=== PATIENT | female | born 1955 | race African-American/Black ===

== ENCOUNTER 2017-10-31 07:53 | Inpatient (IN) | payer OTHER ==
[2017-10-31] VITALS (14 sets, daily range): BP systolic 112–202; BP diastolic 52–108
[~2017-10-31] VITALS: Ht 170.2 cm; Wt 126.1 kg
[~2017-10-31 07:53] MED LIST: ACETAMINOPHEN-1 EAC1 ORAL; BACTRIM DS TAB1 EAC1 ORAL; CLINDAMYCIN HC150 MG ORAL; KEFLEX500 MG ORAL; NEXIUM20 MG ORAL; NORCO 5-325 TA1 EACH ORAL; PREDNISONE20 MG ORAL; UNOBMED; YAZ 28 TABLET1 EACH ORAL; [UNRECOGNIZED DRUG - REMARK]; [UNRECOGNIZED DRUG - REMARK]
[2017-10-31] MEDS ORDERED: METOPROLOL TART50 M1 ORAL (08:30)
[2017-10-31] MEDS ORDERED: HYDROCHLOROTHIA25 MG ORAL (08:30)
[2017-10-31] MEDS ORDERED: [UNRECOGNIZED DRUG - REMARK] (08:30)
[2017-10-31] MEDS ORDERED: HALDOL5 MG/1 ML IJ (08:30)
[2017-10-31 09:15] LABS: BASOPHILS % (AUTO) 0.6 % (0.0-2.0); LYMPHOCYTES % (AUTO) 20.1 % (20.0-45.0); MEAN CORPUSCULAR HEMOGLOBIN 31.8 PG (27.0-31.0); MEAN CORPUSCULAR HGB CONC 33.3 G/DL (32.0-36.0); MEAN CORPUSCULAR VOLUME 95 FL (80-99); MEAN PLATELET VOLUME 5.6 FL (6.5-10.1); MONOCYTES % (AUTO) 9.4 % (1.0-10.0); NEUTROPHILS % (AUTO) 69.9 % (45.0-75.0); PLATELET COUNT 248 K/UL (150-450); RED BLOOD COUNT 4.47 M/UL (4.20-5.40); RED CELL DISTRIBUTION WIDTH 11.5 % (11.6-14.8); WHITE BLOOD COUNT 4.3 K/UL (4.8-10.8)
--- NOTE | 2017-10-31 09:15 | Emergency Room Report ---
History of Present Illness General Chief Complaint: Abdominal Pain Source: Patient Present Illness HPI 62-year-old female, history of gastric ulcer, obesity p/w abdominal pain 4 days. Patient states pain started gradually, localized to mid abdomen, non radiating, sharp in nature, intermittent. No relieving or exacerbating factors Pt reports n/v, >10 episodes of nbnb vomiting, 2 episodes of watery non bloody diarrhea Denies fever, chills. No hx of endoscopies/colonoscopies. Patient states that she has felt this pain in the past, and it was after she was taking a lot of Motrin for her knee pain. States that this feels similar to prior episodes Allergies: Uncoded Allergies: PENICILLIN (Allergy, Unknown, 05/05/16) Patient History Past Medical History: see triage record Past Surgical History: none Pertinent Family History: none Now: No Reviewed Nursing Documentation: PMH: Agreed, PSxH: Agreed Nursing Documentation-PMH Hx Cardiac Problems: Yes - High cholesteral, "enlarged heart" Hx Hypertension: Yes Hx Pacemaker: No Hx Asthma: Yes Hx COPD: No Hx Cancer: No Hx Gastrointestinal Problems: Yes - Gastritis; ulcers Hx Dialysis: No Hx Cerebrovascular Accident: No Hx Seizures: No Review of Systems All Other Systems: negative except mentioned in HPI Physical Exam Vital Signs Date Time Temp Pulse Resp B/P (MAP) Pulse Ox O2 Delivery O2 Flow Rate FiO2 10/31/17 07:56 99.1 113 18 177/108 95 Room Air Sp02 EP Interpretation: reviewed, normal General Appearance: well appearing, alert, GCS 15, non-toxic, mild distress Head: normocephalic, atraumatic Eyes: bilateral eye normal inspection, bilateral eye PERRL, bilateral eye EOMI ENT: normal ENT inspection, normal pharynx, normal voice, moist mucus membranes Neck: normal inspection, full range of motion, supple Respiratory: normal inspection, lungs clear, normal breath sounds, no respiratory distress, no retraction, no wheezing, speaking full sentences, chest symmetrical Cardiovascular #1: normal inspection, regular rate, rhythm, no edema, normal capillary refill Cardiovascular #2: 2+ radial (R), 2+ radial (L) Gastrointestinal: no guarding, no rebound, other - mid Abdomen tender palpation , indurated bulge/umbilical hernia palpated mid abdomen, non reducble and tender Musculoskeletal: normal inspection, back normal, normal range of motion, non- tender Neurologic: normal inspection, alert, oriented x3, responsive, motor strength/ tone normal, sensory intact, normal gait, speech normal Psychiatric: normal inspection, judgement/insight normal, memory normal Skin: normal inspection, normal color, no rash, warm/dry, well hydrated, normal turgor Medical Decision Making Diagnostic Impression: Primary Impression: Small bowel obstruction ER Course 62-year-old female with abdominal pain Differential Diagnosis: Gastritis, gastroenteritis, cholecystitis, appendicitis, diverticulitis, SBO, mesenteric ischemia, cardiac, UTI/pyelo Plan: Basic labs, ua, ekg Pepcid, maalox, pain control, IVF CT abdopelvis ER course: +SBO from incarcerated hernia Dr Ricci came to see patient Will go to OR Disposition: Patient is to be admitted to med surg D/W Dr Valencia who has accepted patient for admission Please note that this Emergency Department Report was dictated using [employer] building technology software, occasionally this can lead to erroneous entry secondary to interpretation by the dictation equipment EKG Diagnostic Results EP Interpretation: Yes Rate: normal Rhythm: NSR ST Segments: No acute changes ASA given to patient: No Rhythm Strip EP Interpretation: Yes Rate: 100 Rhythm: NSR, no PVCs, no ectopy Laboratory Tests Test 10/31/17 08:42 White Blood Count 4.3 K/UL (4.8-10.8) L Red Blood Count 4.47 M/UL (4.20-5.40) Hemoglobin 14.2 G/DL (12.0-16.0) Hematocrit 42.6 % (37.0-47.0) Mean Corpuscular Volume 95 FL (80-99) Mean Corpuscular Hemoglobin 31.8 PG (27.0-31.0) H Mean Corpuscular Hemoglobin Concent 33.3 G/DL (32.0-36.0) Red Cell Distribution Width 11.5 % (11.6-14.8) L Platelet Count 248 K/UL (150-450) Mean Platelet Volume 5.6 FL (6.5-10.1) L Neutrophils (%) (Auto) 69.9 % (45.0-75.0) Lymphocytes (%) (Auto) 20.1 % (20.0-45.0) Monocytes (%) (Auto) 9.4 % (1.0-10.0) Eosinophils (%) (Auto) 0.0 % (0.0-3.0) Basophils (%) (Auto) 0.6 % (0.0-2.0) Sodium Level 135 MMOL/L (136-145) L Potassium Level 3.5 MMOL/L (3.5-5.1) Chloride Level 93 MMOL/L (98-107) L Carbon Dioxide Level 33 MMOL/L (21-32) H Anion Gap 9 mmol/L (5-15) Blood Urea Nitrogen 9 mg/dL (7-18) Creatinine 1.0 MG/DL (0.55-1.30) Estimate Glomerular Filtration Rate > 60 mL/min (>60) Glucose Level 129 MG/DL (74-106) H Calcium Level 9.4 MG/DL (8.5-10.1) Total Bilirubin 0.4 MG/DL (0.2-1.0) Aspartate Amino Transferase (AST) 25 U/L (15-37) Alanine Aminotransferase (ALT) 16 U/L (12-78) Alkaline Phosphatase 70 U/L (46-116) Troponin I 0.000 ng/mL (0.000-0.056) Total Protein 8.4 G/DL (6.4-8.2) H Albumin 4.0 G/DL (3.4-5.0) Globulin 4.4 g/dL Albumin/Globulin Ratio 0.9 (1.0-2.7) L Lipase 76 U/L (73-393) CT/MRI/US Diagnostic Results CT/MRI/US Diagnostic Results : Imaging Test Ordered: CT abdo pelvis Impression Findings: Multiple, moderately distended loops of small bowel demonstrated to the level of a umbilical region hernia measuring about 5 cm in diameter. The hernia contains a loop of distended bowel and is almost certainly accounting for the bowel obstruction. Difficult to identify the efferent loop coming out of the hernia. There is a small amount of ascites. There is no free air. The uterus is markedly distended and enlarged as well as heterogeneous due to fibroids. Aortoiliac calcifications are noted. Parapelvic cysts are again demonstrated in the left kidney. The lung bases appear clear. Gallbladder, liver and spleen and pancreas are unremarkable. Mild endplate spurs noted in the visualized lower thoracic spine. There is narrowing of L4-5 disc with a minimal anterolisthesis. Hypertrophied facets noted in the lower part of lumbar spine. IMPRESSION: Small bowel obstruction secondary to a 5 cm umbilical hernia. Please correlate clinically. Trace ascites Atherosclerotic disease. Markedly enlarged heterogeneous uterus due to fibroids. Multiple parapelvic left renal cysts. Degenerative changes of the thoracolumbar spine as described above Last Vital Signs Date Time Temp Pulse Resp B/P (MAP) Pulse Ox O2 Delivery O2 Flow Rate FiO2 10/31/17 07:56 99.1 113 18 177/108 95 Room Air Disposition: ADMITTED INPATIENT Condition: Serious Referrals: [facility],REFERRING (PCP) Memo Glasgow M.D. Oct 31, 2017 09:15
[2017-10-31 09:26] LABS: ANION GAP 9 mmol/L (5-15); CALCIUM 9.4 MG/DL (8.5-10.1); CARBON DIOXIDE 33 MMOL/L (21-32); CHLORIDE 93 MMOL/L (98-107); GLOMERULAR FILTRATION RATE > 60 mL/min (>60); POTASSIUM 3.5 MMOL/L (3.5-5.1); SODIUM 135 MMOL/L (136-145)
[2017-10-31 09:31] LABS: ALANINE AMINOTRANSFERASE 16 U/L (12-78); ALBUMIN/GLOBULIN RATIO 0.9 (1.0-2.7); ASPARTATE AMINO TRANSFERASE 25 U/L (15-37); LIPASE 76 U/L (73-393); TOTAL PROTEIN 8.4 G/DL (6.4-8.2)
[2017-10-31] MEDS ORDERED: Morphine Sulfate 4mg/ml Inj IVP ONE (10:15)
--- NOTE | 2017-10-31 10:27 | Diagnostic Imaging Report ---
Indication: Abdominal pain Technique: Continuous helical transaxial imaging of the abdomen and pelvis was obtained from the lung bases to the pubic symphysis during intravenous contrast administration. Coronal 2-D reformats were also obtained. Study obtained in a Siemens sensation [address] Automatic Exposure Control was utilized. Total Dose length Product (DLP): 958.[address] Dose Index Volume (CTDIvol): 18.6, 0.15 mGy Comparison: 05/11/2015 Findings: Multiple, moderately distended loops of small bowel demonstrated to the level of a umbilical region hernia measuring about 5 cm in diameter. The hernia contains a loop of distended bowel and is almost certainly accounting for the bowel obstruction. Difficult to identify the efferent loop coming out of the hernia. There is a small amount of ascites. There is no free air. The uterus is markedly distended and enlarged as well as heterogeneous due to fibroids. Aortoiliac calcifications are noted. Parapelvic cysts are again demonstrated in the left kidney. The lung bases appear clear. Gallbladder, liver and spleen and pancreas are unremarkable. Mild endplate spurs noted in the visualized lower thoracic spine. There is narrowing of L4-5 disc with a minimal anterolisthesis. Hypertrophied facets noted in the lower part of lumbar spine. IMPRESSION: Small bowel obstruction secondary to a 5 cm umbilical hernia. Please correlate clinically. Trace ascites Atherosclerotic disease. Markedly enlarged heterogeneous uterus due to fibroids. Multiple parapelvic left renal cysts. Degenerative changes of the thoracolumbar spine as described above The CT scanner at [facility] [place] is accredited by the [employer] and the scans are performed using dose optimization techniques as appropriate to a performed exam including Automatic Exposure control.
[2017-10-31] MEDS ORDERED: Vancomycin 1gm inj IVPB ONE (14:43)
[2017-10-31 14:48] LABS: APPEARANCE,URINE CLEAR; KETONES,URINE NEGATIVE (NEGATIVE); LEUKOCYTE ESTERASE ,URINE 1+ (NEGATIVE); NITRITE,URINE NEGATIVE (NEGATIVE); PH,URINE 7 (4.5-8.0); PROTEIN,URINE 2+ (NEGATIVE); UROBILINOGEN,URINE NORMAL MG/DL (0.0-1.0)
[2017-10-31] MEDS ORDERED: Lidocaine 1% 10mg/ml/EPI 0.01mg/ml 50ml INJ ONE (14:51)
[2017-10-31] MEDS ORDERED: Propofol 200mg/20ml IV ONE (14:51)
[2017-10-31] MEDS ORDERED: Ropivacaine 5mg/ml Vial 30ml INJ ONE (14:51)
[2017-10-31 14:57] LABS: BACTERIA,URINE FEW /HPF; SQUAMOUS EPITHELIAL CELL,UR FEW /LPF (NONE/OCC)
[2017-10-31] MEDS ORDERED: NeoSporin Gu Irrig 1ml Amp IRRIG ONE (15:18)
[2017-10-31] MEDS ORDERED: Bacitracin 50000 Units Vial ONE (15:18)
--- NOTE | 2017-10-31 15:29 | Consultation ---
History of Present Illness General Date patient seen: Oct 31, 2017 Chief Complaint: Abdominal Pain Reason for Consultation: incarcerated umbilical hernia Present Illness HPI 62 year old female with multiple medical comorbidities and known umbilical hernia presents with acutely worsening abdominal pain with tender umbilical mass. States that she first noted some discomfort a few days ago but last night acutely noted more severe pain followed by over 10 episodes of non bloody emesis. states that as the pain worsened she came to ED for evaluation. has known of umbilical hernia prior and has noted a small discomfort in the area prior but has never had similar episode. pain described as 10/10 umbilical cramping pain. has not had BM or flatus since onset. in ED noted to have umbilical mass that is not reducible, tenderness, and CT scan with SBO secondary to incarcerated bowel in 5cm umbilical hernia. surgery called to evaluate. Allergies: Uncoded Allergies: PENICILLIN (Allergy, Unknown, 05/05/16) Medication History Scheduled Cephalexin* (Keflex*), 500 MG ORAL Q6H Clindamycin Hcl* (Clindamycin Hcl*), 300 MG ORAL TID, (Reported) Esomeprazole Magnesium (Nexium), 20 MG ORAL DAILY Hydrochlorothiazide* (Hydrochlorothiazide*), 25 MG ORAL DAILY, (Reported) Metoprolol Tartrate* (Metoprolol Tartrate*), 50 MG ORAL DAILY, (Reported) Prednisone* (Prednisone*), 20 MG ORAL DAILY Trimethoprim/Sulfamethoxazole 160/800* (Bactrim Ds Tablet*), 1 TAB ORAL Q12H Scheduled PRN Acetaminophen With Codeine (T#3) (Tylenol #3 Tab*), 1 TAB ORAL Q4H PRN for For Pain, (Reported) Ethinyl Estradiol/Drospirenone (Deonan 28 Tablet), 1 TAB ORAL DAILY PRN for Abdominal cramps Hydrocodone Bit/Acetaminophen 5-325* ([place] 5-325*), 1 TAB ORAL Q6H PRN for For Pain Miscellaneous Medications Haloperidol Lactate (Haldol), 5 MG IJ, (Reported) Unable to Obtain Medications (Unable To Obtain Meds), (Reported) ["BP pill"], (Reported) ["Nerve pill"], (Reported) [Cholesterol pill], Unknown Dose, (Reported) Patient History History Provided By: Patient Healthcare decision maker Resuscitation status Advanced Directive on File Past Medical/Surgical History Past Medical/Surgical History: (1) HTN (hypertension) (2) Dyslipidemia (3) Pre-diabetes (4) Umbilical hernia, incarcerated (5) Gastritis (6) Fibroid, uterine (7) Abdominal pain (8) Abscess (9) Cellulitis (10) Dental infection (11) Small bowel obstruction Review of Systems Constitutional: Denies: no symptoms, see HPI, chills, sweats, fever, malaise, weakness, other Eye: Denies: no symptoms, see HPI, eye pain, blurred vision, tearing, double vision, nose pain, nose congestion, acuity changes, discharge, other ENT: Denies: no symptoms, see HPI, ear pain, ear discharge, nose pain, nose congestion, throat pain, throat swelling, mouth pain, hearing loss, nasal discharge, other Respiratory: Denies: no symptoms, see HPI, cough, orthopnea, shortness of breath, stridor, wheezing, BOWLING, sputum, other Cardiovascular: Denies: no symptoms, see HPI, chest pain, edema, palpitations, syncope, PND, other Gastrointestinal: Reports: abdominal pain, constipation, nausea, vomiting Genitourinary: Denies: no symptoms, see HPI, discharge, dysuria, frequency, hematuria, pain, retention, incontinence, urgency, vag bleed/dc, other Musculoskeletal: Denies: no symptoms, see HPI, back pain, gout, joint pain, joint swelling, muscle pain, muscle stiffness, other Skin: Denies: no symptoms, see HPI, rash, change in color, change in hair/nails , dryness, lesions, other Psychiatric: Denies: no symptoms, see HPI, prior hx, anxiety, depressed feelings, emotional problems, SI, HI, hallucinations, other Neurological: Denies: no symptoms, see HPI, headache, numbness, paresthesia, seizure, tingling, tremors, focal weakness, syncope, dizziness, other Endocrine: Denies: no symptoms, see HPI, excessive sweating, flushing, intolerance to temperature, increased thirst, increased urine, unexplained weight loss, other Hematologic/Lymphatic: Denies: no symptoms, see HPI, anemia, blood clots, easy bleeding, easy bruising, swollen glands, diathesis, other All Other Systems: negative except mentioned in HPI Physical Exam General Appearance: alert, mild distress Lines, tubes and drains: peripheral HEENT: normocephalic, PERRL Neck: normal inspection Respiratory/Chest: normal breath sounds, no respiratory distress, no accessory muscle use Cardiovascular/Chest: normal peripheral pulses, normal rate, regular rhythm Abdomen: absent bowel sounds, distended, guarding, rebound, tender, hernia, mass, other - distended, firm large 8cm x 8cm mass noted at umbilicus that is tender with rebound and guarding. unable to reduce hernia. Extremities: normal inspection Skin Exam: normal pigmentation, warm/dry Neurologic: alert, oriented x 3, responsive Last 24 Hour Vital Signs Date Time Temp Pulse Resp B/P (MAP) Pulse Ox O2 Delivery O2 Flow Rate FiO2 10/31/17 12:45 84 17 192/88 100 Room Air 10/31/17 12:00 78 12 195/92 97 Room Air 10/31/17 11:00 98.9 88 15 190/94 96 Room Air 10/31/17 10:40 98.9 92 15 202/93 98 Room Air 10/31/17 07:56 99.1 113 18 177/108 95 Room Air 10/31/17 07:56 99.1 113 18 177/108 95 Room Air Laboratory Tests Test 10/31/17 08:42 10/31/17 14:40 White Blood Count 4.3 K/UL (4.8-10.8) L Red Blood Count 4.47 M/UL (4.20-5.40) Hemoglobin 14.2 G/DL (12.0-16.0) Hematocrit 42.6 % (37.0-47.0) Mean Corpuscular Volume 95 FL (80-99) Mean Corpuscular Hemoglobin 31.8 PG (27.0-31.0) H Mean Corpuscular Hemoglobin Concent 33.3 G/DL (32.0-36.0) Red Cell Distribution Width 11.5 % (11.6-14.8) L Platelet Count 248 K/UL (150-450) Mean Platelet Volume 5.6 FL (6.5-10.1) L Neutrophils (%) (Auto) 69.9 % (45.0-75.0) Lymphocytes (%) (Auto) 20.1 % (20.0-45.0) Monocytes (%) (Auto) 9.4 % (1.0-10.0) Eosinophils (%) (Auto) 0.0 % (0.0-3.0) Basophils (%) (Auto) 0.6 % (0.0-2.0) Sodium Level 135 MMOL/L (136-145) L Potassium Level 3.5 MMOL/L (3.5-5.1) Chloride Level 93 MMOL/L (98-107) L Carbon Dioxide Level 33 MMOL/L (21-32) H Anion Gap 9 mmol/L (5-15) Blood Urea Nitrogen 9 mg/dL (7-18) Creatinine 1.0 MG/DL (0.55-1.30) Estimat Glomerular Filtration Rate > 60 mL/min (>60) Glucose Level 129 MG/DL (74-106) H Calcium Level 9.4 MG/DL (8.5-10.1) Total Bilirubin 0.4 MG/DL (0.2-1.0) Aspartate Amino Transf (AST/SGOT) 25 U/L (15-37) Alanine Aminotransferase (ALT/SGPT) 16 U/L (12-78) Alkaline Phosphatase 70 U/L (46-116) Troponin I 0.000 ng/mL (0.000-0.056) Total Protein 8.4 G/DL (6.4-8.2) H Albumin 4.0 G/DL (3.4-5.0) Globulin 4.4 g/dL Albumin/Globulin Ratio 0.9 (1.0-2.7) L Lipase 76 U/L (73-393) Urine Color Pale yellow Urine Appearance Clear Urine pH 7 (4.5-8.0) Urine Specific [place] 1.005 (1.005-1.035) Urine Protein 2+ (NEGATIVE) H Urine Glucose (UA) Negative (NEGATIVE) Urine Ketones Negative (NEGATIVE) Urine Occult Blood 1+ (NEGATIVE) H Urine Nitrite Negative (NEGATIVE) Urine Bilirubin Negative (NEGATIVE) Urine Urobilinogen Normal MG/DL (0.0-1.0) Urine Leukocyte Esterase 1+ (NEGATIVE) H Urine RBC 2-4 /HPF (0 - 2) H Urine WBC 2-4 /HPF (0 - 2) Urine Squamous Epithelial Cells Few /LPF (NONE/OCC) Urine Bacteria Few /HPF (NONE) Height (Feet): 5 Height (Inches): 7.00 Weight (Pounds): 278 Assessment/Plan Problem List: (1) Umbilical hernia, incarcerated Assessment & Plan: 62F with large incarcerated umbilical hernia with SBO. low grade fever, labs reviewed, on exam large tender umbilical mass that is not reducible with tenderness/guarding/rebound, and distention. given exam and history there is serious concern for possible strangulation and bowel ischemia or necrosis either present or in very near future. recommend urgent/emergency exploration. if bowel viable will reduce and repair hernia. if bowel not viable will need resection. risks, benefits, and alteratives discussed in detail. patient expressed understanding and consented to procedure. she is not safe to be discharged or transferred. given symptoms and exam high possibility of morbidity/mortality if not treated sari. -npo -iv fluids -iv abx -consent -to OR for ex lap, reduction of incarcerated umbilical hernia, possible bowel resection ICD Codes: K42.0 - Umbilical hernia with obstruction, without gangrene SNOMED: [id number] Status: progressing Abhinav Ricci Oct 31, 2017 15:29
--- NOTE | 2017-10-31 15:31 | Pre-Procedure Note/Attestation ---
Pre-Procedure Note/Attestation Complete Prior to Procedure Procedure Narrative: ex lap, reduction of umbilical hernia, possible bowel resection Indications for Procedure Pre-Operative Diagnosis: incarcerated umbilical hernia with possible bowel strangulation/ischemia/ necrosis. Attestation I attest that I discussed the nature of the procedure; its benefits; risks and complications; and alternatives (and the risks and benefits of such alternatives ), prior to the procedure, with the patient (or the patient's legal patient financial representative). I attest that, if there was a reasonable possibility of needing a blood transfusion, the patient (or the patient's legal patient financial representative) was given the [facility] standardized written summary, pursuant to the Balwinder Harrison Blood Safety Act ([place] Health and Safety Code # 1645, as amended). I attest that I re-evaluated the patient just prior to the surgery and that there has been no change in the patient's H&P, except as documented below: Abhinav Ricci Oct 31, 2017 15:31
[2017-10-31] MEDS ORDERED: Sterile Water Irrig 1000ml IRRIG ONE (16:00)
[2017-10-31] MEDS ORDERED: Neostigmine 1mg/ml 10ml Inj ONE (16:00)
[2017-10-31] MEDS ORDERED: Zemuron 50mg/5ml Inj IV ONE (16:00)
[2017-10-31] MEDS ORDERED: Glycopyrrolate 0.2mg/ml 1ml Vial ONE (16:00)
[2017-10-31] MEDS ORDERED: Midazolam 2mg/2ml Inj ONE (16:00)
[2017-10-31] MEDS ORDERED: Ketorolac 30mg Inj ONE (16:00)
[2017-10-31] MEDS ORDERED: fentaNYL 100 mcg/2 mL IV ONE (16:00)
[2017-10-31] MEDS ORDERED: Morphine Sulfate 10mg/ml Inj ONE (16:00)
[2017-10-31] MEDS ORDERED: NS Irrig 1000ml ONE (16:00)
[2017-10-31] MEDS ORDERED: LR 1000ml ONE (16:00)
[2017-10-31] MEDS ORDERED: Succinylcholine 20mg/ml 10ml vial ONE (16:00)
[2017-10-31] MEDS ORDERED: LR 1000ml 1,000 ML IVLG SCH (16:52)
--- NOTE | 2017-10-31 16:52 | Anethesia Preoperative Eval ---
Anesthesia Pre-op PMH/ROS General Date of Evaluation: Oct 31, 2017 Time of Evaluation: 15:46 Anesthesiologist: Gonzalo ASA Score: ASA 3 Mallampati Score Class I : Soft palate, uvula, fauces, pillars visible Class II: Soft palate, uvula, fauces visible Class III: Soft palate, base of uvula visible Class IV: Only hard plate visible Mallampati Classification: Class III Surgeon: Clarita Diagnosis: Incarcerated hernia small bowel obstruction Surgical Procedure: Hernia repair Anesthesia History: none Family History: no anesthesia problems Allergies: Uncoded Allergies: PENICILLIN (Allergy, Unknown, 05/05/16) Medications: see eMAR Past Medical History Cardiovascular: Reports: HTN, Denies: CAD, CT, valve dz, arrhythmia, other Pulmonary: Reports: ALLISON, Denies: asthma, COPD, other Gastrointestinal/Genitourinary: Reports: GERD, Denies: CRI, ESRD, other Neurologic/Psychiatric: Reports: depression/anxiety, Denies: dementia, CVA, TIA, other Endocrine: Reports: steroids, Denies: DM, hypothyroidism, other HEENT: Denies: cataract (L), cataract (R), glaucoma, TAKOTNA (L), TAKOTNA (R), other Hematology/Immune: Denies: anemia, DVT, bleeding disorder, other Musculoskeletal/Integumentary: Reports: DJD Other: obesity - morbid obesity PMH Narrative: acute abdominal pain recurrent vomiting PSxH Narrative: None Anesthesia Pre-op Phys. Exam Physician Exam Last Vital Signs Date Time Temp Pulse Resp B/P (MAP) Pulse Ox O2 Delivery O2 Flow Rate FiO2 10/31/17 15:20 98.9 87 17 190/87 100 Room Air Constitutional: NAD Neurologic: CN 2-12 intact Cardiovascular: RRR Respiratory: other - diminished breath sunds Gastrointestinal: other - obesity Airway Exam Mallampati Score: Class III MO: limited Neck: short ROM: limited Teeth: missing Dentures: no upper, no lower Anesthesia Pre-op A/P Labs Hematology Test 10/31/17 08:42 White Blood Count 4.3 K/UL (4.8-10.8) L Red Blood Count 4.47 M/UL (4.20-5.40) Hemoglobin 14.2 G/DL (12.0-16.0) Hematocrit 42.6 % (37.0-47.0) Mean Corpuscular Volume 95 FL (80-99) Mean Corpuscular Hemoglobin 31.8 PG (27.0-31.0) H Mean Corpuscular Hemoglobin Concent 33.3 G/DL (32.0-36.0) Red Cell Distribution Width 11.5 % (11.6-14.8) L Platelet Count 248 K/UL (150-450) Mean Platelet Volume 5.6 FL (6.5-10.1) L Neutrophils (%) (Auto) 69.9 % (45.0-75.0) Lymphocytes (%) (Auto) 20.1 % (20.0-45.0) Monocytes (%) (Auto) 9.4 % (1.0-10.0) Eosinophils (%) (Auto) 0.0 % (0.0-3.0) Basophils (%) (Auto) 0.6 % (0.0-2.0) Chemistry Test 10/31/17 08:42 Sodium Level 135 MMOL/L (136-145) L Potassium Level 3.5 MMOL/L (3.5-5.1) Chloride Level 93 MMOL/L (98-107) L Carbon Dioxide Level 33 MMOL/L (21-32) H Anion Gap 9 mmol/L (5-15) Blood Urea Nitrogen 9 mg/dL (7-18) Creatinine 1.0 MG/DL (0.55-1.30) Estimat Glomerular Filtration Rate > 60 mL/min (>60) Glucose Level 129 MG/DL (74-106) H Calcium Level 9.4 MG/DL (8.5-10.1) Total Bilirubin 0.4 MG/DL (0.2-1.0) Aspartate Amino Transf (AST/SGOT) 25 U/L (15-37) Alanine Aminotransferase (ALT/SGPT) 16 U/L (12-78) Alkaline Phosphatase 70 U/L (46-116) Troponin I 0.000 ng/mL (0.000-0.056) Total Protein 8.4 G/DL (6.4-8.2) H Albumin 4.0 G/DL (3.4-5.0) Globulin 4.4 g/dL Albumin/Globulin Ratio 0.9 (1.0-2.7) L Lipase 76 U/L (73-393) Studies Pre-op Studies: EKG - SR Risk Assessment & Plan Assessment: ASA 3 E Plan: GA with ETT Status Change Before Surgery: No Pre-Antibiotics Drug: CVancomycin 1 gr. Given Within 1 Hr of Incision: Yes Time Given: 16:42 DIGNA REYES M.D. Oct 31, 2017 16:52
[2017-10-31] MEDS ORDERED: Ketorolac 30mg Inj IV PRN ×2 (17:00→18:15)
[2017-10-31] MEDS ORDERED: Hydromorphone 0.5mg/0.5ml inj IVP PRN (17:00)
[2017-10-31] MEDS ORDERED: DiphenhydrAMINE 50mg/ml Inj IVP PRN ×2 (17:00→21:00)
[2017-10-31] MEDS ORDERED: Meperidine 50mg/ml Inj(FOR RIGORS ONLY) IV PRN (17:00)
[2017-10-31] MEDS ORDERED: Midazolam 2mg/2ml Inj IVP PRN (17:00)
--- NOTE | 2017-10-31 17:56 | Immediate Post-Op Evaluation ---
Immediate Post-Op Evalulation Immediate Post-Op Evalulation Procedure: Incarcerated umbilical hernia repair Date of Evaluation: Oct 31, 2017 Time of Evaluation: 17:54 IV Fluids: 1000 Blood Products: none Estimated Blood Loss: min Urinary Output: none Blood Pressure Systolic: 161 Blood Pressure Diastolic: 72 Pulse Rate: 96 Respiratory Rate: 20 O2 Sat by Pulse Oximetry: 99 Temperature (Fahrenheit): 98.1 Pain Score (1-10): 2 Nausea: No Vomiting: No Complications none Patient Status: awake, patent, extubated, none Hydration Status: adequate DIGNA REYES M.D. Oct 31, 2017 17:56
--- NOTE | 2017-10-31 18:01 | Brief Operative Note ---
Immediate Post Operative Note Operative Note Pre-op Diagnosis: incarcerated umbilical hernia with possible bowel strangulation/ischemia/ necrosis. Procedure: exploratory laparotomy, reduction of incarcerated umbilical hernia, lysis of adhesions, umbilical hernia repair with mesh Post-op Diagnosis: same as pre-op Findings: consistent w/pre-op dx studies Surgeon: tiana Anesthesiologist: chiqui Anesthesia: general, local Specimen: yes - hernia sac; small bowel implants Complications: none Condition: stable Fluids: see records Estimated Blood Loss: minimal Drains: none Implant(s) used?: Yes - mesh Abhinav Ricci Oct 31, 2017 18:01
[2017-10-31] MEDS ORDERED: Morphine Sulfate 2mg/ml Inj IVP PRN ×2 (18:15→20:00)
[2017-10-31] MEDS ORDERED: Milk of Magnesia 30ml Ud ORAL PRN (21:00)
[2017-10-31] MEDS ORDERED: Norco 5mg/325mg tab ORAL PRN (21:00)
--- NOTE | 2017-10-31 21:30 | Operative Note - Dictated ---
DATE OF OPERATION: 10/31/2017 PREOPERATIVE DIAGNOSIS: Incarcerated umbilical hernia with possible bowel strangulation, ischemia, or necrosis. POSTOPERATIVE DIAGNOSIS: Incarcerated umbilical hernia. OPERATION PERFORMED: 1. Exploratory laparotomy. 2. Reduction of incarcerated umbilical hernia. 3. Lysis of adhesions. 4. Umbilical hernia repair with mesh. ATTENDING SURGEON: Abhinav Ricci M.D. BUGGY RUNNER: None. ANESTHESIOLOGIST: Abdiel Sánchez M.D. 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 SPECIMENS: 1. Hernia sac. 2. Small bowel implants. COMPLICATIONS: None. CONDITION: Stable to PACU. FLUIDS: Please see anesthesia record. ESTIMATED BLOOD LOSS: Minimal. DRAINS: None. IMPLANTS: Bard Ventralex hernia patch, lot number [id number], reference #[id number]. Date of expiration 09/02/2020. INDICATIONS FOR PROCEDURE: This is a 62-year-old female, who presented to the emergency department at [facility] complaining of worsening acute onset umbilical abdominal pain with associated nausea and emesis. The patient stated that late yesterday evening, she began to notice a very firm tender mass in her umbilicus that she had not seen before. Following this, she began to develop worsening pain associated with nausea and over 10 episodes of nonbloody emesis. The pain did not resolve. The patient came to emergency department for evaluation. In the emergency department, the patient had a CT scan, which identified an incarcerated umbilical hernia, which was not reducible at bedside. Given these findings and the patient's symptoms, there is significant concern for possible ischemia, necrosis, or strangulation. Exploration was warranted and to be performed immediately. Risks, benefits, and alternatives were discussed with the patient at bedside in detail. Consent was obtained. OPERATIVE NOTE: The patient was taken to the operating room and placed on operating table in supine position with bilateral arms out. All bony prominences were well padded with GelPads. General anesthesia was induced and the patient was intubated. Preoperative time-out was taken identifying the patient, procedure, operative staff, and surgical staff. SCDs were placed. IV antibiotics were given one hour prior to cut time. The abdomen was prepped and draped in the standard surgical fashion. A midline incision was made around the umbilicus using a fresh #10 scalpel. Incision was carried down through the subcutaneous tissue to the fascia using electrocautery and blunt dissection. The hernia sac was identified and circumferentially dissected out. The umbilicus was attached directly to the hernia sac. The umbilicus was freed from the hernia sac. At this time, a hernia sac approximately the size of a baseball or the larger was firm and under tension. A small incision was made into the hernia sac and fair amount of serous fluid was evacuated. The bowel contents of the hernia sac were mildly ischemic, but fortunately were not necrotic and after reduced became more pink and viable. At this time, the hernia sac was excised in whole and sent to pathology for review. The small bowel was evaluated at the area of incarceration. Around the area of incarceration, there was a fair amount of adhesions, which were lysed with electrocautery and Metzenbaum scissors as necessary. Once lysis of adhesions was completed, there were some small bowel implants that were identified. A sample of these small bowel implants was sent to pathology for review. Following this, the segment of the small bowel was run proximally and distally to the area of incarceration and the bowel was otherwise healthy and slowly became decompressed throughout the procedure. At this time, since the bowel was viable was reduced back into anatomical location. No other abnormalities were seen through this incision. Approximately 200 to 250 mL of serous drainage was evacuated from the abdomen. Once this was complete, decision was made to proceed with umbilical hernia repair. The hernia defect was approximately 4 to 5 cm in diameter, but fortunately under no significant tension. At this time, decision was made to use a Bard Ventralex hernia repair patch. The patch was fixed in an underlay fashion using #0 Prolene sutures circumferentially around the circular patch and the defect. Once this was complete and successful, the hernia defect was primarily closed using multiple interrupted #0 Prolene sutures. At this time, successful hernia repair was noted. The wound was irrigated with copious amounts of saline. Hemostasis was achieved. The umbilicus was reapproximated using a 3-0 Vicryl suture. Following this, the skin incision was closed using surgical skin juancho. The patient tolerated the procedure well and was extubated and taken to the postanesthetic care unit in stable condition. Abhinav Ricci M.D. DR: Ilsa JOB#: [id number] CC:
[2017-10-31] MEDS: ceFAZolin 2gm/50ml Premix 50 ML IV SCH (21:46)
[2017-10-31] MEDS: Morphine Sulfate 4mg/ml Inj IVP PRN (21:47)
[2017-10-31] MEDS: D5 1/2NS w/KCl 20mEq 1,000 ML IV SCH (22:40)
[2017-11-01] VITALS (7 sets, daily range): BP systolic 123–181; BP diastolic 62–85
[2017-11-01] MEDS: Morphine Sulfate 4mg/ml Inj IVP PRN (04:06)
[2017-11-01] MEDS: ceFAZolin 2gm/50ml Premix 50 ML IV SCH (05:14)
[2017-11-01 06:46] LABS: ANION GAP 5 mmol/L (5-15); CALCIUM 7.9 MG/DL (8.5-10.1); CARBON DIOXIDE 33 MMOL/L (21-32); CHLORIDE 100 MMOL/L (98-107); CREATININE 0.9 MG/DL (0.55-1.30); GLOMERULAR FILTRATION RATE > 60 mL/min (>60); POTASSIUM 3.7 MMOL/L (3.5-5.1); SODIUM 138 MMOL/L (136-145)
[2017-11-01 06:52] LABS: BASOPHILS % (AUTO) 0.6 % (0.0-2.0); EOSINOPHILS % (AUTO) 0.4 % (0.0-3.0); LYMPHOCYTES % (AUTO) 10.7 % (20.0-45.0); MEAN CORPUSCULAR HEMOGLOBIN 31.5 PG (27.0-31.0); MEAN CORPUSCULAR HGB CONC 32.5 G/DL (32.0-36.0); MEAN CORPUSCULAR VOLUME 97 FL (80-99); MEAN PLATELET VOLUME 5.6 FL (6.5-10.1); MONOCYTES % (AUTO) 11.8 % (1.0-10.0); NEUTROPHILS % (AUTO) 76.5 % (45.0-75.0); PLATELET COUNT 204 K/UL (150-450); RED BLOOD COUNT 3.68 M/UL (4.20-5.40); RED CELL DISTRIBUTION WIDTH 12.1 % (11.6-14.8); WHITE BLOOD COUNT 6.1 K/UL (4.8-10.8)
--- NOTE | 2017-11-01 08:45 | History and Physical Report ---
DATE OF ADMISSION: 10/31/2017 NOTE: POOR AUDIO Covering for Dr. Link. IDENTIFICATION: The patient is a pleasant 62-year-old female with past medical history significant for GERD, umbilical hernia, at this time presents for worsening umbilical pain, tenderness, and umbilical mass. She states that she has first noted this discomfort several days ago and has been more severe followed by 10 episodes of nonbloody vomiting, presented to the ER with small umbilical hernia noted in the area of the , however, now significantly worse. No bowel movements umbilical mass such as nonreducible SBO, secondary to incarcerated bowel umbilical hernia. Surgery called to evaluate. . The patient . PAST SURGICAL HISTORY: None noted. REVIEW OF SYSTEMS: Otherwise negative. The patient denies nausea, vomiting, or constipation. PHYSICAL EXAMINATION: VITAL SIGNS: Reviewed. GENERAL: No acute distress. PULMONARY: Decreased breath sounds. CARDIOVASCULAR: Regular rate. No S3 or S4. ABDOMEN: Soft, nontender, and nondistended. nonreducible distended 8 x 8 cm mass in the umbilicus with abdominal gradient . EXTREMITIES: No cyanosis, swelling, or edema. LABORATORY AND DIAGNOSTIC DATA: WBC , hemoglobin 14.2, and platelet count 228,000. umbilical hernia incarcerated with SBO, low-grade fever, reviewed. On exam, umbilical mass is nonreducible. No tenderness, guarding, rebound, and distention noted. BUN of 9 and creatinine of 1. Urine toxicology screen and urinalysis reviewed. ASSESSMENT AND RECOMMENDATIONS: 1. Incarcerated umbilical hernia, seen by surgical team. The patient is on antibiotics. The patient sent to the OR for exploratory laparotomy reduction, possible bowel resection. The patient tolerated the procedure well. Hernia has been repaired. Currently, the patient improved. Continue to closely monitor with fluids. 2. Leukopenia, related to medications versus process. Continue to closely follow. 3. Small bowel obstruction, likely secondary to incarcerated hernia. 4. Nausea and vomiting due to incarcerated hernia, currently improved. Continue Zofran on a p.r.n. basis. 5. . Juan Valencia M.D. DR: BRAD JOB#: [id number] CC:
[2017-11-01] MEDS: Docusate 100mg cap ORAL SCH ×2 (10:30→17:15)
[2017-11-01] MEDS ORDERED: Flu Vaccine Quadrivalent 0.5ml IM ONE (11:00)
[2017-11-01] MEDS: D5 1/2NS w/KCl 20mEq 1,000 ML IV SCH ×2 (12:10→19:00)
[2017-11-01] MEDS: Norco 10mg/325mg tab ORAL PRN ×2 (12:11→20:43)
--- NOTE | 2017-11-01 13:11 | Cardiology Report ---
APPROVED REPORT EKG Measurement Heart [id number] Normal sinus rhythm Possible Anterior infarct, age undetermined Abnormal ECG
--- NOTE | 2017-11-01 14:41 | General Progress Note ---
Progress Note Progress Note surgery: doing well. pain. no n/v/f/c. hungry. ambulatory. no flatus or bm yet. afebrile, HD stable, labs okay abdomen soft, distended, tympanic, incisional tenderness. incision c/d/i. POD #1 s/p exploration with reduction of incarcerated umbilical hernia. recovering. likely will have ileus post op given incarceration with pre op SBO -okay for clears. DO NOT advance -iv fluids ambulate and oob incentive spirometry dressings daily and prn will follow and await return of bowel function. Abhinav Ricci Nov 01, 2017 14:41
[2017-11-01] MEDS ORDERED: Metoprolol Succinate XL 50mg tab ORAL SCH (15:00)
[2017-11-01] MEDS: Metoprolol Tartrate 50mg tab ORAL SCH ×2 (17:15→20:40)
--- NOTE | 2017-11-01 22:36 | General Progress Note ---
Assessment/Plan Assessment/Plan ASSESSMENT AND RECOMMENDATIONS: 1. Incarcerated umbilical hernia, seen by surgical team. -->s/p exploration with reduction of incarcerated umbilical hernia. --> The patient tolerated the procedure well. 2. Small bowel obstruction, likely secondary to incarcerated hernia. 3. Nausea and vomiting due to incarcerated hernia, currently improved. Subjective Allergies: Coded Allergies: PENICILLINS (Verified Allergy, Unknown, 10/31/17) Uncoded Allergies: PENICILLIN (Allergy, Unknown, 05/05/16) All Systems: reviewed and negative except above Subjective pod 1, no complaints Objective Last 24 Hour Vital Signs Date Time Temp Pulse Resp B/P (MAP) Pulse Ox O2 Delivery O2 Flow Rate FiO2 11/01/17 20:40 85 167/83 11/01/17 20:23 98.1 92 19 181/72 97 11/01/17 17:15 88 129/79 11/01/17 15:55 98.2 88 20 129/79 97 11/01/17 12:30 99.4 97 20 161/82 95 11/01/17 08:00 99.0 93 18 168/85 96 Room Air 11/01/17 07:50 98.1 11/01/17 07:50 98.1 11/01/17 04:00 98.1 70 18 145/68 99 Room Air 11/01/17 00:15 98.1 77 18 123/68 98 Room Air Intake and Output 10/31/17 11/01/17 19:00 07:00 Intake Total 1000 ml 940 ml Balance 1000 ml 940 ml Intake Oral 0 ml 240 ml IV Total 1000 ml 700 ml # Voids 2 Laboratory Tests 11/01/17 05:45: White Blood Count 6.1, Red Blood Count 3.68L, Hemoglobin 11.6L, Hematocrit 35.7L , Mean Corpuscular Volume 97, Mean Corpuscular Hemoglobin 31.5H, Mean Corpuscular Hemoglobin Concent 32.5, Red Cell Distribution Width 12.1, Platelet Count 204, Mean Platelet Volume 5.6L, Neutrophils (%) (Auto) 76.5H, Lymphocytes (%) (Auto) 10.7L, Monocytes (%) (Auto) 11.8H, Eosinophils (%) (Auto) 0.4, Basophils (%) (Auto) 0.6, Sodium Level 138, Potassium Level 3.7, Chloride Level 100, Carbon Dioxide Level 33H, Anion Gap 5, Blood Urea Nitrogen 11, Creatinine 0.9, Estimat Glomerular Filtration Rate > 60, Glucose Level 126H, Calcium Level 7.9L Height (Feet): 5 Height (Inches): 7.00 Weight (Pounds): 278 General Appearance: no apparent distress EENT: normal ENT inspection Neck: normal alignment Cardiovascular: normal peripheral pulses 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
[2017-11-02] MEDS: Morphine Sulfate 4mg/ml Inj IVP PRN (00:41)
[2017-11-02 01:30] VITALS: BP 140/80
[2017-11-02 04:00] VITALS: BP 146/76
[2017-11-02] MEDS: D5 1/2NS w/KCl 20mEq 1,000 ML IV SCH ×2 (04:19→15:00)
[2017-11-02 04:57] LABS: BASOPHILS % (AUTO) 0.6 % (0.0-2.0); EOSINOPHILS % (AUTO) 0.9 % (0.0-3.0); LYMPHOCYTES % (AUTO) 8.7 % (20.0-45.0); MEAN CORPUSCULAR HEMOGLOBIN 32.1 PG (27.0-31.0); MEAN CORPUSCULAR HGB CONC 33.4 G/DL (32.0-36.0); MEAN CORPUSCULAR VOLUME 96 FL (80-99); MEAN PLATELET VOLUME 5.8 FL (6.5-10.1); MONOCYTES % (AUTO) 12.5 % (1.0-10.0); NEUTROPHILS % (AUTO) 77.3 % (45.0-75.0); PLATELET COUNT 189 K/UL (150-450); RED BLOOD COUNT 3.47 M/UL (4.20-5.40); RED CELL DISTRIBUTION WIDTH 11.6 % (11.6-14.8); WHITE BLOOD COUNT 6.9 K/UL (4.8-10.8)
[2017-11-02 05:22] LABS: ALANINE AMINOTRANSFERASE 13 U/L (12-78); ALBUMIN/GLOBULIN RATIO 0.8 (1.0-2.7); ANION GAP 7 mmol/L (5-15); ASPARTATE AMINO TRANSFERASE 16 U/L (15-37); CALCIUM 7.8 MG/DL (8.5-10.1); CARBON DIOXIDE 29 MMOL/L (21-32); CHLORIDE 97 MMOL/L (98-107); CREATININE 0.7 MG/DL (0.55-1.30); GLOMERULAR FILTRATION RATE > 60 mL/min (>60); POTASSIUM 3.8 MMOL/L (3.5-5.1); SODIUM 133 MMOL/L (136-145); TOTAL PROTEIN 6.8 G/DL (6.4-8.2)
[2017-11-02] MEDS: Docusate 100mg cap ORAL SCH (08:40)
[2017-11-02] MEDS: Metoprolol Tartrate 50mg tab ORAL SCH (08:40)
[2017-11-02 08:48] VITALS: BP 150/73
--- NOTE | 2017-11-02 10:40 | General Progress Note ---
Progress Note Progress Note Surgery: doing very well. minimal pain. no n/v/f/c. mild acid reflux. bowel function returned. passing flatus and having BM's. tolerating clears. afebrile, HD stable, labs reviewed abdomen soft, nt/nd, bs+, incision c/d/i. 62F s/p exlap with reduction of incarcerated umbilical hernia followed by repair. recovering -advance diet as tolerated -ambulate and OOB; activity as tolerated -okay to leave wound open to air. -if tolerates diet and continues to do well can d/c home today from surgical standpoint -Rx written -follow up with me in 1 week for staple removal. office info given to patient. Abhinav Ricci Nov 02, 2017 10:40
[2017-11-02 11:38] VITALS: BP 138/72
[2017-11-02] MEDS ORDERED: NORCO 5-325 TA1 EAC1 ORAL ×2 (13:24→13:25)
[2017-11-02] MEDS ORDERED: COLACE100 MG ORAL ×2 (13:24→13:26)
--- NOTE | 2017-11-03 19:04 | Discharge Summary ---
Discharge Summary Hospital Course Date of Admission Oct 31, 2017 at 18:01 Date of Discharge Nov 02, 2017 at 15:18 Admitting Diagnosis Small Bowel Obstruction ROBERT Waddell is a 62 year old female who was admitted on Oct 31, 2017 at 18:01 for Small Bowel Obstruction Hospital Course [id number] Discharge Discharge Disposition Patient was discharged to Home (01) Discharge Diagnoses: Nusrat Espinoza NP Nov 03, 2017 19:04
--- NOTE | 2017-11-04 05:00 | Discharge Summary 2 SIG ---
DATE OF ADMISSION: 10/31/2017 DATE OF DISCHARGE: 11/02/2017 BRIEF HOSPITAL COURSE: The patient is a 62-year-old female with multiple medical comorbidities and known umbilical hernia, presented to the ED complaining of acutely worsening abdominal pain with tender umbilical mass. Pain started gradually and localized to the midabdomen. The pain was nonradiating and sharp in nature and reported more than 10 episodes of nonbilious and nonbloody vomiting. On evaluation at ED, blood work was stable. She had a CT of the abdomen and pelvis that showed small bowel obstruction secondary to a 5-cm umbilical hernia. She was then admitted and was placed on NPO. She underwent exploratory laparotomy with reduction of incarcerated umbilical hernia, lysis of adhesions, and umbilical hernia repair with mesh by Dr. Ricci on 10/31/2017. She tolerated the procedure well. Postoperatively, she was given pain management. Diet was slowly advanced. She was encouraged ambulation and was given physical therapy. She was encouraged use of incentive spirometry, and wound dressings were changed second day postop. Abdomen was soft and nontender. Incision was clean, dry, and intact. Diet was advanced as tolerated. The patient was cleared to be discharged. Advised to leave the wound open to air and was given prescriptions, to follow up with Dr. Ricci in a week. FINAL DIAGNOSES: 1. Incarcerated umbilical hernia, status post exploration with reduction of incarcerated umbilical hernia. 2. Small bowel obstruction secondary to incarcerated hernia. 3. Nausea and vomiting due to incarcerated hernia. PROCEDURE DONE: Exploratory laparotomy with reduction of incarcerated umbilical hernia and lysis of adhesions with umbilical hernia repair with mesh. Refer to operative report. DISPOSITION: The patient was discharged home. DISCHARGE MEDICATIONS: Refer to medication list. DISCHARGE INSTRUCTIONS: Follow up with Dr. Ricci in a week. Leave the wound open to air. No heavy lifting. Ambulate as tolerated. Abhinav Ricci M.D. I have been assigned to dictate discharge summary on this account and I was not involved in the patient's management. Nusrat Espinoza N.P. DR: JORGE JOB#: [id number] CC: BARI
== END 2017-11-02 15:18 | disposition home or self-care (01) | DRG 228 ==
LOC: EMR 08:13 → EDBEDREQ 14:06 → EDBEDREQSVC 14:23 → SUR 15:15 → 3E 18:01
PROC: 0DN80ZZ Release Small Intestine, Open Approach (ICD-10-PCS; 2017-10-31)
PROC: 0WUF0JZ Supplement Abdominal Wall with Synthetic Substitute, Open Approach (ICD-10-PCS; principal; 2017-10-31 12:00)
DX: K42.0 Umbilical hernia with obstruction, without gangrene (principal); I10 Essential (primary) hypertension; K66.0 Peritoneal adhesions (postprocedural) (postinfection); Z88.0 Allergy status to penicillin
CPT/HCPCS: 36415; 74177; 80048; 80053; 81003; 83690; 84484; 85025; 90630; 93005; 94003; 94150; 99285; J2250; J2405; J2710

== ENCOUNTER 2018-05-19 19:11 | Emergency (ER) | payer OTHER ==
[~2018-05-19] VITALS: Ht 170.2 cm; Wt 122.5 kg
[~2018-05-19 19:11] MED LIST changes: +COLACE100 MG ORAL; +HALDOL5 MG/1 ML IJ; +HYDROCHLOROTHIA25 MG ORAL; +METOPROLOL TART50 M1 ORAL; +NORCO 5-325 TA1 EAC1 ORAL; +[UNRECOGNIZED DRUG - REMARK]
[2018-05-19 20:06] VITALS: BP 204/102
[2018-05-19] MEDS ORDERED: Enalaprilat 2.5mg/2ml Inj IV ONE (20:30)
[2018-05-19] MEDS ORDERED: Ketorolac 30mg Inj IV ONE (20:30)
[2018-05-19] MEDS ORDERED: Ketorolac 30mg Inj ONE (20:33)
[2018-05-19 20:56] VITALS: BP 170/83
--- NOTE | 2018-05-19 21:43 | Emergency Room Report ---
History of Present Illness General Chief Complaint: Neck Pain Source: Patient Present Illness HPI This patient c/o muscular neck/shoulder aching for about three days and today also c/o bitemporal-frontal aching headache. She thinks these symptoms are related to her htn. She takes metoprolol and hctz 50 BID. No trauma, no fever, no shortness of breath, no travel history, no leg swelling. no chest pain, no diaphoresis, no exertional complaints, no nausea, no vomiting, no diarrhea, no abdominal pain. Tolerating po fine, normal urinary output, normal bm. No syncope , LOC, dizziness, lightheadedness. Allergies: Coded Allergies: PENICILLINS (Verified Allergy, Unknown, 10/31/17) Uncoded Allergies: PENICILLIN (Allergy, Unknown, 05/05/16) Nursing Documentation-[facility] Past Medical History: No History, Except For Hx Cardiac Problems: Yes - high cholesterol Hx Hypertension: Yes Hx Pacemaker: No Hx Asthma: Yes Hx COPD: No Hx Cancer: No Hx Gastrointestinal Problems: Yes - gastritis; ulcers Hx Dialysis: No Hx Cerebrovascular Accident: No Hx Transient Ischemic Attacks: No Hx Dementia: No Hx Alzheimer's Disease: No Hx Parkinson's Disease: No Hx Meningitis: No Hx Encephalitis: No Hx Seizures: No Hx Epilepsy: No Hx Multiple Sclerosis: No Hx Cerebral Palsy: No Hx Amyotrophic Lat Sclerosis: No Hx [place] Syndrome: No Hx Paralysis: No Hx Peripheral Neuropathy: No Hx Spinal Cord Injury: No Hx Head Trauma: No Hx Traumatic Brain Injury: No Hx Memory Loss: No Hx Concentration Difficulty: No Hx Speech Problem: No Hx Tremors: No Hx Vertigo: No Hx Dizziness: No Hx Syncope: No Hx Headaches: No Hx Aphasia: No Hx Dysphasia: No Hx Numbness: No Hx Weakness: No Hx Neurologic Surgery: No Hx Brain Shunt: No Review of Systems Constitutional: Reports: no symptoms Eye: Reports: no symptoms ENT: Reports: no symptoms Respiratory: Reports: no symptoms Cardiovascular: Reports: no symptoms Gastrointestinal: Reports: no symptoms Genitourinary: Reports: no symptoms Musculoskeletal: Reports: no symptoms Skin: Reports: no symptoms Psychiatric: Reports: no symptoms Neurological: Reports: no symptoms Endocrine: Reports: no symptoms Hematologic/Lymphatic: Reports: no symptoms Allergic: Reports: no symptoms Physical Exam Vital Signs Date Time Temp Pulse Resp B/P (MAP) Pulse Ox O2 Delivery O2 Flow Rate FiO2 7/14/18 19:19 98.1 68 18 236/111 99 Room Air 98.1 Sp02 EP Interpretation: reviewed, normal General Appearance: normal inspection, well appearing, no apparent distress, alert, GCS 15, non-toxic, obese Head: normocephalic, atraumatic Eyes: bilateral eye normal inspection, bilateral eye PERRL, bilateral eye EOMI ENT: normal ENT inspection, hearing grossly normal, normal pharynx, no angioedema, normal voice, moist mucus membranes Neck: normal inspection, full range of motion, supple, no meningismus, no bony tend Respiratory: normal inspection, lungs clear, normal breath sounds, no rhonchi, no respiratory distress, no retraction, no accessory muscle use, no wheezing Cardiovascular #1: normal inspection, regular rate, rhythm, no edema Gastrointestinal: normal inspection, normal bowel sounds, non tender, soft, no mass, non-distended Musculoskeletal: gait/station normal, normal range of motion Neurologic: normal inspection, alert, oriented x3, responsive, motor strength/ tone normal Psychiatric: normal inspection, judgement/insight normal, memory normal Suicide Risk Assessment: Suicidal Ideation: No Had intent to initiate attempt: No Pt's plan for suicide attempt: No Has means to complete attempt: No Skin: normal inspection, normal color, no rash, warm/dry Medical Decision Making Diagnostic Impression: Primary Impression: HTN (hypertension) Additional Impression: Headache ER Course This patient has no historical features concerning for serious pathology. Gradual onset, aching. Her initial bp ~220/93 and IV Vasotec ordered and IV ketorolac. Her headache and neck/shoulders feel better, bp about the same. Later about an hour after the Vasotec patient volunteered that her md told her not to take Lisinopril, that she had been on it in the past. While in the ED no problems but I won't prescribe additional meds. I have instructed patient to f/ u pmd as it sounds like she is maxed out on current dosages. Last Vital Signs Date Time Temp Pulse Resp B/P (MAP) Pulse Ox O2 Delivery O2 Flow Rate FiO2 05/19/18 20:56 55 14 170/83 100 Room Air 05/19/18 20:28 97.3 Disposition: HOME, SELF-CARE Condition: Stable Referrals: [facility],REFERRING (PCP) Patient Instructions: General Headache Without Cause, Hypertension Gold,Hira M.D. May 19, 2018 21:43
[2018-05-19] MEDS ORDERED: NAPROXEN250 MG ORAL (21:44)
[2018-05-19 22:20] VITALS: BP 183/80
[2018-05-19 22:21] VITALS: BP 183/80
== END 2018-05-19 22:20 | disposition home or self-care (01) ==
LOC: EMR 20:00
DX: R51 Headache (principal); I10 Essential (primary) hypertension; J45.909 Unspecified asthma, uncomplicated; E78.00 Pure hypercholesterolemia, unspecified; Z87.11 Personal history of peptic ulcer disease; Z88.0 Allergy status to penicillin
CPT/HCPCS: 99282; J1885

== ENCOUNTER 2018-09-26 06:58 | Emergency (ER) | payer OTHER ==
[~2018-09-26] VITALS: Ht 170.2 cm; Wt 124.7 kg
[~2018-09-26 06:58] MED LIST changes: +NAPROXEN250 MG ORAL
[2018-09-26 07:14] VITALS: BP 221/96
--- NOTE | 2018-09-26 07:23 | Emergency Room Report ---
History of Present Illness General Chief Complaint: Stroke Symptoms Source: Patient Present Illness HPI Patient presents with reports that she feels that she had a small stroke 2 days ago she reports at that time she has some tightness to her left face Weakness and tingling to her left hand and arm Patient's son who is a respiratory therapist had told her to come to the hospital, however the patient did not want to, was given aspirin at home Today she felt that the right side of her face felt somewhat tight Her speech have been questionably different since 2 days ago And therefore presented to the ER Denies any chest pain denies any vomiting Patient complains of diffuse body pain however Reports that she is numb and tingling and in pain Mostly in her extremities Allergies: Coded Allergies: PENICILLINS (Verified Allergy, Unknown, 10/31/17) METOPROLOL (Verified Adverse Reaction, Unknown, Rash, 09/26/18) swollen tounge and face Uncoded Allergies: PENICILLIN (Allergy, Unknown, 05/05/16) Patient History Past Medical History: see triage record Pertinent Family History: none Last Menstrual Period: n/a Now: No : 1 Para: 1 Reviewed Nursing Documentation: PMH: Agreed; PSxH: Agreed Nursing Documentation-PMH Past Medical History: No History, Except For Hx Cardiac Problems: Yes - high cholesterol Hx Hypertension: Yes Hx Pacemaker: No Hx Asthma: Yes Hx COPD: No Hx Cancer: No Hx Gastrointestinal Problems: Yes - gastritis; ulcers Hx Dialysis: No Hx Cerebrovascular Accident: No Hx Transient Ischemic Attacks: No Hx Dementia: No Hx Alzheimer's Disease: No Hx Parkinson's Disease: No Hx Meningitis: No Hx Encephalitis: No Hx Seizures: No Hx Epilepsy: No Hx Multiple Sclerosis: No Hx Cerebral Palsy: No Hx Amyotrophic Lat Sclerosis: No Hx Guillian-[place] Syndrome: No Hx Paralysis: No Hx Peripheral Neuropathy: No Hx Spinal Cord Injury: No Hx Head Trauma: No Hx Traumatic Brain Injury: No Hx Memory Loss: No Hx Concentration Difficulty: No Hx Speech Problem: No Hx Tremors: No Hx Vertigo: No Hx Dizziness: No Hx Syncope: No Hx Headaches: No Hx Aphasia: No Hx Dysphasia: No Hx Numbness: No Hx Weakness: No Hx Neurologic Surgery: No Hx Brain Shunt: No Review of Systems All Other Systems: negative except mentioned in HPI Physical Exam Vital Signs Date Time Temp Pulse Resp B/P (MAP) Pulse Ox O2 Delivery O2 Flow Rate FiO2 11/21/18 07:04 97.9 59 15 203/114 100 Room Air Sp02 EP Interpretation: reviewed, normal General Appearance: well appearing, no apparent distress Head: normocephalic, atraumatic Eyes: bilateral eye PERRL, bilateral eye EOMI ENT: hearing grossly normal, normal pharynx, TMs + canals normal, uvula midline Neck: full range of motion, supple, no meningismus, no bony tend Respiratory: lungs clear, normal breath sounds, no rhonchi, no respiratory distress, no retraction, no accessory muscle use Cardiovascular #1: normal peripheral pulses, regular rate, rhythm, no edema, no gallop, no JVD, no murmur Gastrointestinal: normal bowel sounds, non tender, soft, no mass, no organomegaly, non-distended, no guarding, no hernia, no pulsatile mass, no rebound Genitourinary: no CVA tenderness Musculoskeletal: other - Equal strength bilaterally, patient appears to have somewhat of a pressured speech Neurologic: oriented x3, responsive, motor strength/tone normal, sensory intact Psychiatric: mood/affect normal Skin: normal color, no rash, warm/dry, palpation normal Lymphatic: normal inspection, no adenopathy Medical Decision Making Diagnostic Impression: Primary Impression: Stroke-like episode Additional Impression: Hyponatremia ER Course Patient is a fairly complex patient with multiple differential to consideration including but not limited to cardiac cardiopulmonary and vascular emergencies Other neurological pathology also entertained CT head does not reveal any acute pathology Patient's sodium level is low This could potentially explain some of the neurological symptoms Patient provided with aspirin at this time does not meet criteria for any thrombolytic therapy secondary to the timing of the patient's presentation Patient is well over 24 hours from initial symptoms Case was discussed with accepting physician and patient transferred in improved condition for further eval Labs Test 09/26/18 07:25 09/26/18 08:20 White Blood Count 4.4 K/UL (4.8-10.8) Red Blood Count 4.33 M/UL (4.20-5.40) Hemoglobin 13.8 G/DL (12.0-16.0) Hematocrit 39.8 % (37.0-47.0) Mean Corpuscular Volume 92 FL (80-99) Mean Corpuscular Hemoglobin 31.8 PG (27.0-31.0) Mean Corpuscular Hemoglobin Concent 34.6 G/DL (32.0-36.0) Red Cell Distribution Width 11.3 % (11.6-14.8) Platelet Count 254 K/UL (150-450) Mean Platelet Volume 5.3 FL (6.5-10.1) Neutrophils (%) (Auto) 60.2 % (45.0-75.0) Lymphocytes (%) (Auto) 24.8 % (20.0-45.0) Monocytes (%) (Auto) 12.8 % (1.0-10.0) Eosinophils (%) (Auto) 0.5 % (0.0-3.0) Basophils (%) (Auto) 1.8 % (0.0-2.0) Prothrombin Time 10.4 SEC (9.30-11.50) Prothromb Time International Ratio 1.0 (0.9-1.1) Activated Partial Thromboplast Time 28 SEC (23-33) Sodium Level 128 MMOL/L (136-145) Potassium Level 3.9 MMOL/L (3.5-5.1) Chloride Level 92 MMOL/L (98-107) Carbon Dioxide Level 29 MMOL/L (21-32) Anion Gap 8 mmol/L (5-15) Blood Urea Nitrogen 14 mg/dL (7-18) Creatinine 0.8 MG/DL (0.55-1.30) Estimat Glomerular Filtration Rate > 60 mL/min (>60) Glucose Level 75 MG/DL (74-106) Calcium Level 9.1 MG/DL (8.5-10.1) Total Bilirubin 0.4 MG/DL (0.2-1.0) Aspartate Amino Transf (AST/SGOT) 23 U/L (15-37) Alanine Aminotransferase (ALT/SGPT) 20 U/L (12-78) Alkaline Phosphatase 75 U/L (46-116) Total Creatine Kinase 198 U/L (26-308) Creatine Kinase MB 0.9 NG/ML (0.0-3.6) Creatine Kinase MB Relative Index 0.4 Troponin I 0.000 ng/mL (0.000-0.056) Total Protein 8.5 G/DL (6.4-8.2) Albumin 3.9 G/DL (3.4-5.0) Globulin 4.6 g/dL Albumin/Globulin Ratio 0.8 (1.0-2.7) Urine Opiates Screen Negative (NEGATIVE) Urine Barbiturates Screen Negative (NEGATIVE) Phencyclidine (PCP) Screen Negative (NEGATIVE) Urine Amphetamines Screen Negative (NEGATIVE) Urine Benzodiazepines Screen Negative (NEGATIVE) Urine Cocaine Screen Negative (NEGATIVE) Urine Marijuana (THC) Screen Negative (NEGATIVE) Rhythm Strip Diag. Results EP Interpretation: yes Rate: 67 Rhythm: NSR, no PVC's, no ectopy Chest X-Ray Diagnostic Results Chest X-Ray Diagnostic Results : Chest X-Ray Ordered: Yes # of Views/Limited/Complete: 1 View Indication: Chest Pain EP Interpretation: Yes Interpretation: no consolidation, no effusion, no pneumothorax Impression: No acute disease Electronically Signed by: Mary Carmen Cameron DO CT/MRI/US Diagnostic Results CT/MRI/US Diagnostic Results : Impression CT head: no acute disease Last Vital Signs Date Time Temp Pulse Resp B/P (MAP) Pulse Ox O2 Delivery O2 Flow Rate FiO2 09/26/18 07:04 97.9 59 15 203/114 100 Room Air Status: improved Disposition: XFER SHT-TRM HOSP Condition: Serious Mary Carmen Cameron DO Sep 26, 2018 07:23
[2018-09-26 07:43] LABS: BASOPHILS % (AUTO) 1.8 % (0.0-2.0); EOSINOPHILS % (AUTO) 0.5 % (0.0-3.0); HEMATOCRIT 39.8 % (37.0-47.0); HEMOGLOBIN 13.8 G/DL (12.0-16.0); LYMPHOCYTES % (AUTO) 24.8 % (20.0-45.0); MEAN CORPUSCULAR VOLUME 92 FL (80-99); MONOCYTES % (AUTO) 12.8 % (1.0-10.0); NEUTROPHILS % (AUTO) 60.2 % (45.0-75.0); PLATELET COUNT 254 K/UL (150-450); RED BLOOD COUNT 4.33 M/UL (4.20-5.40); RED CELL DISTRIBUTION WIDTH 11.3 % (11.6-14.8); WHITE BLOOD COUNT 4.4 K/UL (4.8-10.8)
[2018-09-26 07:51] LABS: ANION GAP 8 mmol/L (5-15); BLOOD UREA NITROGEN 14 mg/dL (7-18); CALCIUM 9.1 MG/DL (8.5-10.1); CARBON DIOXIDE 29 MMOL/L (21-32); CHLORIDE 92 MMOL/L (98-107); CREATININE 0.8 MG/DL (0.55-1.30); POTASSIUM 3.9 MMOL/L (3.5-5.1); SODIUM 128 MMOL/L (136-145)
[2018-09-26] MEDS ORDERED: UNOBMED (07:56)
[2018-09-26 08:05] LABS: ALANINE AMINOTRANSFERASE 20 U/L (12-78); ALBUMIN 3.9 G/DL (3.4-5.0); ALBUMIN/GLOBULIN RATIO 0.8 (1.0-2.7); ALKALINE PHOSPHATASE 75 U/L (46-116); ASPARTATE AMINO TRANSFERASE 23 U/L (15-37); BILIRUBIN,TOTAL 0.4 MG/DL (0.2-1.0); CKMB 0.9 NG/ML (0.0-3.6); CREATINE KINASE 198 U/L (26-308)
--- NOTE | 2018-09-26 08:18 | Diagnostic Imaging Report ---
Indications: Tightness weakness and tingling to the left arm and face Technique: Spiral acquisitions obtained through the brain. Angled axial and coronal 5 x 5 mm slices were reconstructed. Total dose length product 1431.8 mGycm. CTDI vol(s) 70.38 mGy. Dose reduction achieved using automated exposure control Comparison: None. Findings: There is mild age-related enlargement of the ventricles and extra axial CSF spaces. There is periventricular deep white matter low-attenuation, consistent with chronic ischemic change. Intact calvarium. Normal hansen-white differentiation. No acute intracranial hemorrhage nor edema. No mass effect nor midline shift. Tiny old lacunar infarct is seen in the anterior limb left internal capsule. Visualized sinuses are unremarkable. There is inward displacement of the medial right orbital wall Impression: Negative for acute intracranial bleed or mass effect Chronic and age-related changes, as described Findings discussed by phone with Dr. Cameron at 8:12 AM on 09/26/[address] scanner at [facility] is accredited by the [employer] and the scans are performed using protocols designed to limit radiation exposure to as low as reasonably achievable to attain images of sufficient resolution adequate for diagnostic evaluation.
[2018-09-26 08:40] VITALS: BP_SYST 165; BP_SYST 187; BP_DIAS 126; BP_DIAS 95
[2018-09-26 10:10] VITALS: BP 194/98
--- NOTE | 2018-09-26 11:03 | Diagnostic Imaging Report ---
Indication: Chest pain Technique: One view of the chest Comparison: 11/10/2008 Findings: The heart is enlarged. The lungs and pleural spaces are clear. There are calcified granulomatous lymph nodes in the left hilum and aortopulmonary window. The bones are unremarkable Impression: . No acute process Cardiomegaly Evidence of old granulomatous disease
[2018-09-26 11:15] VITALS: BP 159/84
== END 2018-09-26 11:15 | disposition short-term general hospital (02) ==
LOC: EMR 07:25
DX: I63.89 Other cerebral infarction (principal); E87.1 Hypo-osmolality and hyponatremia; R07.9 Chest pain, unspecified; R29.810 Facial weakness; I10 Essential (primary) hypertension; Z88.0 Allergy status to penicillin; Z88.8 Allergy status to other drugs, medicaments and biological substances
CPT/HCPCS: 36415; 70450; 71045; 80053; 80307; 82550; 82553; 84484; 85025; 85610; 85730; 93005; 96374; 99284; J0360

== ENCOUNTER 2020-06-11 08:47 | Emergency (ER) | payer OTHER ==
[~2020-06-11] VITALS: Ht 170.2 cm; Wt 127.0 kg
[2020-06-11 09:10] VITALS: BP 224/91
--- NOTE | 2020-06-11 09:10 | NUR ---
Note elizabeth in EDM - 06/11/20 at 0937 by ISAIAH ED Nurse Note: Patient walked into ED from home d/t elevated BP at home. Patient 221*
--- NOTE | 2020-06-11 09:10 | NUR ---
ED Nurse Note: ED Nurse Note: Patient walked into ED from home d/t elevated BP at home. Patient 221/117, BP currently 224/99. No s/s of acute distress. Patient denies headache, chest pain, or shortness of breath. Patient states she takes Metoprolol, HCTZ, and benazipril at home, but she has been out of one medication for about a month. Does not know which one. Patient AxO x 4, on the satellite project site monitor. Urine sample collected and sent to lab. Addendum: 06/11/20 at 0940 by NFIELDS ED Nurse Note: Patient states she has 5/10 intermittent headache
--- NOTE | 2020-06-11 09:19 | Emergency Room Report ---
History of Present Illness General Chief Complaint: Hypertension Source: Patient Present Illness HPI Patient is a 65-year-old female presents after increased blood pressure. She states she took her blood pressure this morning and noticed this to be elevated. Prior history of hypertension and previously been on multiple medications. She states she was taking metoprolol as well as benazepril and hydrochlorothiazide. As she reports being on more medication previously but her doctor had remove these. Primary care physician is Dr. Marilia Maki. She denies having any prior cardiac condition. She states she has been feeling somewhat lightheaded and has some prior history of osteoarthritis. Denies any chest discomfort. She states she does have some headache. Allergies: Uncoded Allergies: PENICILLIN (Allergy, Unknown, 05/05/16) COVID-19 Screening Contact w/high risk pt: No Experienced COVID-19 symptoms?: No COVID-19 Testing performed INSULATION CUTTER AND FORMER: No Patient History Past Medical History: see triage record Reviewed Nursing Documentation: PMH: Agreed; PSxH: Agreed Nursing Documentation-PMH Past Medical History: No History, Except For Hx Hypertension: Yes Hx Pacemaker: No Hx Asthma: Yes Hx COPD: No Hx Cancer: No Hx Gastrointestinal Problems: Yes - gastritis; ulcers Hx Dialysis: No Hx Cerebrovascular Accident: No Hx Transient Ischemic Attacks: No Hx Dementia: No Hx Alzheimer's Disease: No Hx Parkinson's Disease: No Hx Meningitis: No Hx Encephalitis: No Hx Seizures: No Hx Epilepsy: No Hx Multiple Sclerosis: No Hx Cerebral Palsy: No Hx Amyotrophic Lat Sclerosis: No Hx Guillian-[place] Syndrome: No Hx Paralysis: No Hx Peripheral Neuropathy: No Hx Spinal Cord Injury: No Hx Head Trauma: No Hx Traumatic Brain Injury: No Hx Memory Loss: No Hx Concentration Difficulty: No Hx Speech Problem: No Hx Tremors: No Hx Vertigo: No Hx Dizziness: No Hx Syncope: No Hx Headaches: No Hx Aphasia: No Hx Dysphasia: No Hx Numbness: No Hx Weakness: No Hx Neurologic Surgery: No Hx Brain Shunt: No Review of Systems All Other Systems: negative except mentioned in HPI Physical Exam Vital Signs Date Time Temp Pulse Resp B/P (MAP) Pulse Ox O2 Delivery O2 Flow Rate FiO2 06/11/20 08:49 98.6 65 16 194/93 (126) 99 Room Air Sp02 EP Interpretation: reviewed, normal General Appearance: normal inspection, well appearing, no apparent distress, alert, GCS 15, non-toxic Head: atraumatic ENT: normal ENT inspection, hearing grossly normal, normal voice Neck: normal inspection, full range of motion, supple, no bony tend Respiratory: normal inspection, lungs clear, normal breath sounds, no respiratory distress, no retraction, no wheezing Cardiovascular #1: regular rate, rhythm, no edema Gastrointestinal: normal inspection, normal bowel sounds, non tender, soft, no guarding, no hernia Genitourinary: no CVA tenderness Musculoskeletal: normal inspection, back normal, normal range of motion Neurologic: alert, motor strength/tone normal, yarder boss III-XII nml as tested, oriented x3, responsive, speech normal, normal inspection Psychiatric: normal inspection, judgement/insight normal, mood/affect normal Medical Decision Making Diagnostic Impression: Primary Impression: HTN (hypertension) ER Course Patient presented for headache. Differential diagnosis included was not limited to hypertensive crisis, CVA, among others. CT imaging was ordered which the patient refused. She was advised that this may lead to missed diagnosis. Reports having prior history of she also states she had recently eaten a hypertension. She states that she had run out of her benazepril. High sodium meal. Patient was given medications for hypertension with improvement. She states she felt better and wanted to leave. Laboratory testing was unremarkable. EKG interpreted by me showed sinus bradycardia with a rate of [address] or T wave changes. Patient does appear to be stable for outpatient evaluation with her primary care physician. She was advised to follow-up with her primary care physician for refills of her blood pressure medications that she cannot remember what they are. This medical record is generated with [employer] rail walker software. There may be some rail walker discrepancies related to use of this software Last Vital Signs Date Time Temp Pulse Resp B/P (MAP) Pulse Ox O2 Delivery O2 Flow Rate FiO2 06/11/20 08:49 98.6 65 16 194/93 (126) 99 Room Air Status: improved Disposition: HOME, SELF-CARE Condition: Stable Heladio Miles MD Jun 11, 2020 09:19
[2020-06-11 09:32] LABS: APPEARANCE,URINE CLEAR; BILIRUBIN, URINE NEGATIVE (NEGATIVE); COLOR,URINE PALE YELLOW; GLUCOSE, URINE (UA) NEGATIVE (NEGATIVE); KETONES,URINE NEGATIVE (NEGATIVE); LEUKOCYTE ESTERASE ,URINE NEGATIVE (NEGATIVE); NITRITE,URINE NEGATIVE (NEGATIVE); PH,URINE 7 (4.5-8.0); PROTEIN,URINE NEGATIVE (NEGATIVE); UROBILINOGEN,URINE NORMAL MG/DL (0.0-1.0)
--- NOTE | 2020-06-11 09:33 | NUR ---
ED Nurse Note: 22 g IV started in right hand. Blood collected and sent to lab.
[2020-06-11 09:43] LABS: BASOPHILS % (AUTO) 2.2 % (0.0-2.0); EOSINOPHILS % (AUTO) 1.2 % (0.0-3.0); HEMATOCRIT 39.6 % (37.0-47.0); HEMOGLOBIN 13.3 G/DL (12.0-16.0); LYMPHOCYTES % (AUTO) 25.6 % (20.0-45.0); MEAN CORPUSCULAR VOLUME 94 FL (80-99); MONOCYTES % (AUTO) 11.7 % (1.0-10.0); NEUTROPHILS % (AUTO) 59.4 % (45.0-75.0); PLATELET COUNT 217 K/UL (150-450); RED BLOOD COUNT 4.22 M/UL (4.20-5.40); RED CELL DISTRIBUTION WIDTH 11.9 % (11.6-14.8); WHITE BLOOD COUNT 4.5 K/UL (4.8-10.8)
[2020-06-11 09:53] LABS: ANION GAP 6 mmol/L (5-15); BLOOD UREA NITROGEN 17 mg/dL (7-18); CALCIUM 9.4 MG/DL (8.5-10.1); CARBON DIOXIDE 30 MMOL/L (21-32); CHLORIDE 91 MMOL/L (98-107); CREATININE 0.8 MG/DL (0.55-1.30); POTASSIUM 3.4 MMOL/L (3.5-5.1); SODIUM 127 MMOL/L (136-145)
[2020-06-11 10:02] LABS: ALBUMIN 3.9 G/DL (3.4-5.0); ALKALINE PHOSPHATASE 78 U/L (46-116); ASPARTATE AMINO TRANSFERASE 20 U/L (15-37); BILIRUBIN,TOTAL 0.8 MG/DL (0.2-1.0)
--- NOTE | 2020-06-11 10:13 | NUR ---
Patient refusing CT, ERMD aware. Patient signed AMA form declinining CT scan
[2020-06-11 10:24] LABS: ALANINE AMINOTRANSFERASE 19 U/L (12-78)
--- NOTE | 2020-06-11 10:50 | NUR ---
ED Nurse Note: Patient refused Lasix, she states she "already took water pill this morning and already have to keep going to the bathroom."
[2020-06-11 11:10] VITALS: BP 158/87
[2020-06-11] MEDS ORDERED: BENAZEPRIL HCL20 MG ORAL ×2 (11:13)
[2020-06-11 11:20] VITALS: BP 157/82
--- NOTE | 2020-06-11 11:20 | NUR ---
ER DISCHARGE NOTE: Patient is cleared to be discharged per ERMD, pt is aox4, on room air, with stable vital signs. pt was given dc and prescription instructions, pt was able to verbalize understanding, pt id band and iv site removed without complications. Patient's BP 158/87 upon discharge, no longer c/o headache. pt is able to ambulate with steady gait. pt took all belongings.
== END 2020-06-11 11:20 | disposition home or self-care (01) ==
LOC: EMR 09:39
DX: I10 Essential (primary) hypertension (principal); J45.909 Unspecified asthma, uncomplicated; Z88.0 Allergy status to penicillin
CPT/HCPCS: 36415; 80053; 81001; 83880; 84443; 84484; 85025; 85610; 85730; 93005; Z7502; 99283